=== PATIENT | female | born 1950 | race Caucasian/White ===

== ENCOUNTER 2016-10-13 09:42 | Emergency (ER) | payer MEDICARE ==
[2016-10-13 09:54] VITALS: TEMP 98.4; BMI 15.4
--- NOTE | 2016-10-13 10:20 | EDPRACDOC ---
- General Information Chief Complaint: Dyspnea/Resp distress Stated Complaint: SHOB/ COUGH Time Seen by Provider: 10/13/16 10:07 Mode Of Arrival: Car Home Medications: Home Medications Aspirin [Aspirin EC] 81 mg PO DAILY 04/26/14 Budesonide/Formoterol Fumarate [Symbicort 160-4.5 Mcg Inhaler] 2 puff INH BID Metoprolol Tartrate 75 mg PO DAILY 04/26/14 Topiramate [Topamax] 200 mg PO BID 04/26/14 Verapamil HCl 120 mg PO DAILY 04/26/14 Pantoprazole Sodium [Protonix] 40 mg PO DAILY 05/10/14 Albuterol/Ipratropium Neb [Duoneb] 3 ml NEB Q6H PRN 08/25/15 Butorphanol Tartrate 1 spray NS DAILY PRN 08/25/15 Ergocalciferol (Vitamin D2) [Drisdol] 50,000 unit PO FR 08/25/15 Atorvastatin Calcium [Lipitor] 10 mg PO DAILY 07/26/16 Clopidogrel Bisulfate [Plavix] 75 mg PO DAILY 07/26/16 Cefdinir 300 mg PO BID #20 capsule 10/13/16 Nebulizer [Erapid Nebulizer] 1 each MC .UNKNOWN 10/13/16 Prednisone [Deltasone, Orasone] 20 mg PO DAILY #20 tab 10/13/16 Allergies/Adverse Reactions: Allergies Allergy/AdvReac Type Severity Reaction Status Date / Time Penicillins Allergy Intermediate Hives* Verified 10/13/16 09:51 - History of Present Illness HPI: SHORTNESS OF BREATH STARTED APPROXIMATELY 1 WEEK AGO. ASSOCIATED WITH CHEST TIGHTNESS AND A PRODUCTIVE COUGH OF YELLOW PHLEGM. LOW-GRADE FEVER WELL. USES SPIRIVA AND ALBUTEROL NEBS AT HOME HAS BEEN USING NEBS EVERY 4-6 HOURS. PATIENT SAW PCP LAST WEEK OXYGEN LEVEL WAS 74% ON ROOM AIR AND WAS PLACED ON 2 L NASAL CANNULA CONTINUOUSLY 24 HOURS A DAY AND LEVAQUIN 750 P.O.. THESE WERE STARTED 3 DAYS AGO. DURING THIS TIME. PATIENT HAS NOT GOT ANY WORSE BUT SHE IS NOT GETTING BETTER SHE IS HERE NUMEROUS PRIOR TODAY BECAUSE SHE HAS NOT GOT ANY BETTER. Relevant History: Reports: COPD ED Past Medical History - History Reviewed Yes Nurses notes reviewed and agree except as marked - Patient Medical History Cardiac History: Reports: Hypertension Respiratory History: Reports: COPD, Pneumonia (walking pnue---3 months ago) GI/ History: Reports: Ulcer Psychological History: Denies: Depression, Substance Use Disorder Systemic History: Reports: Hyperthyroidism (treated with radiation). Denies: Cancer Surgical History: Reports: Other (C-spine and lumbosacral spine surgery) - Family Medical History Reports: Hypertension (mom), Cardiac Disorders (mom- brother). Denies: Diabetes , Cancer, Stroke - Social Medical History Smoking Status: Heavy tobacco smoker (5 or more cigarettes/day or daily pipe/ cigar) Social History: Denies: Substance Use Disorder ETOH: None Substance Abuse: None Lives With: Family Lives In: Home EDM Review of Systems - Review of Systems ROS Negative Except as Marked: Yes All systems reviewed and were negative except as marked - Physical Exam Constitutional: No apparent distress, Alert, Cachectic Oriented to: Time, Person, Place Last recorded Vital Signs: Last Vital Signs Temp 98.4 F 10/13/16 09:51 Pulse 117 10/13/16 09:51 Resp 22 10/13/16 09:51 BP 135/72 10/13/16 09:51 Pulse Ox 96 10/13/16 09:51 Oxygen Pulse Oxygen Saturation 96 O2 Device Nasal Cannula Oxygen Flow Rate 2 Fraction of Inspired Oxygen ( FIO2) - HEENT Head: Normal ( normocephalic) Eye Exam: Normal (PERRL, EOMI, Sclera white) Oropharynx: Normal (Pharynx:Moist without exudate,Gums-no swelling) Nose: No Symptoms Reported (septum midline) Neck: Normal (FROM, trachea at midline) - Respiratory/Cardiovascular Respiratory: Normal - CTA (BBS clear to auscultation without adventitious sounds ), Diminished, Rhonchi, Wheezes, Other (NO RESPIRATORY DISTRESS, SPEAKING IN CLEAR SENTENCES.). negative: Accessory Muscle Use, Tachypnea Cardiovascular: Normal (RRR without murmur, gallop or rub) - GI Auscultation: Normal (NABS) Palpation: Normal (Soft,No rebound or guarding, non distended) Tenderness: Non tender Sousa's Sign: Negative - Musculoskeletal Back: Normal (Non-Tender) Extremities: Normal (Normal tone, Pulses 2+ No cyanosis or edema, FROM) - Integumentary Skin: Normal, Warm, Dry Lymphatics: Normal (no adenopathy) - Neurologic Memory Impaired: Normal Motor Function: Normal (Normal tone, Pulses 2+ No cyanosis or edema, FROM) Cranial Nerve: Normal (CN II-X11 intact sensation, strength 5/5) Cerebellar: Normal Mood Description: Normal Thought: Coherent Perception: Normal ED SOB MDM - Results Result Diagrams: 10/13/16 10:00 10/13/16 10:00 - Diagnostic Imaging Chest Image interpreted by: Radiologist Diagnostic Imaging Comments: Patient Name: FABIOLA LYNN LOC: ED : 1950 AGE: 66 Order Date:10/13/16 Date of Service: Report # [id number] Ord Physician: Ursula Leon MD Exam # [id number] Emergency Physician: Ursula Leon MD Exam(s): [id number] RAD/DG CHEST 2V CLINICAL DATA: Shortness of breath, chest tightness, productive cough EXAM: CHEST 2 VIEW COMPARISON: 08/25/2015 FINDINGS: The lungs are hyperinflated likely secondary to COPD. There is no focal parenchymal opacity. There is no pleural effusion or pneumothorax. The heart and mediastinal contours are unremarkable. There is lower anterior cervical fusion IMPRESSION: No active cardiopulmonary disease. Electronically Signed By: Estephania Colbert On: 10/13/2016 10:44 Electronically Signed By: Estephania Colbert MD Electronically Signed Date/Time: [id number] Dictate Date/Time: 10/13/16 1042 Technologist: Celeste Gil Transcribed By: Chloe Transcribed Date/Time: 10/13/16 1044 - Additional Information Additional Information: PATIENT WITH ADVANCED COPD. ON MAINTENANCE INHALERS AND HAS COMBIVENT RESCUE INHALERS. HAS SUPPLEMENTAL OXYGEN HAS BEEN PLACED ON ANTIBIOTICS HAS BEEN GIVEN STEROIDS IM. WILL ASSESS FOR SEVERITY OF IN OF ILLNESS TODAY HOWEVER THE PATIENT HAS RECEIVED EXCELLENT OUTPATIENT THERAPY. SHE HAS NOT FAILED OUTPATIENT TREATMENT OF YET. - Departure Disposition: Home Condition: Stable Final Diagnosis: COPD with acute lower respiratory infection, Bronchopneumonia Instructions: COPD (Chronic Obstructive Pulmonary Disease) (ED), Bacterial Pneumonia (ED) Education/Counseling Given To: Patient, Family Member Education/Counseling Given Regarding: Diagnosis, Treatment, Prognosis Referrals: Ciara Maharaj PA [Primary Care Provider] - One Week Prescriptions: New Cefdinir 300 mg PO BID #20 capsule Prednisone [Deltasone, Orasone] 20 mg PO DAILY #20 tab No Action Topiramate [Topamax] 200 mg PO BID Verapamil HCl 120 mg PO DAILY Budesonide/Formoterol Fumarate [Symbicort 160-4.5 Mcg Inhaler] 2 puff INH BID Metoprolol Tartrate 75 mg PO DAILY Aspirin [Aspirin EC] 81 mg PO DAILY Pantoprazole Sodium [Protonix] 40 mg PO DAILY Albuterol/Ipratropium Neb [Duoneb] 3 ml NEB Q6H PRN PRN Reason: Shortness Of Breath Ergocalciferol (Vitamin D2) [Drisdol] 50,000 unit PO FR Butorphanol Tartrate 1 spray NS DAILY PRN PRN Reason: HEADACHES Clopidogrel Bisulfate [Plavix] 75 mg PO DAILY Atorvastatin Calcium [Lipitor] 10 mg PO DAILY Nebulizer [Erapid Nebulizer] 1 each MC .UNKNOWN
[2016-10-13] MEDS ORDERED: Albuterol/Ipratropium Neb 3 ML NEB NEB ONE (10:21)
[2016-10-13] MEDS ORDERED: METHYLPREDNISOLONE 125 MG/2 ML VIAL IV ONE (10:21)
[2016-10-13 10:40] LABS: AUTOMATED BASOPHIL 0.5 % (0-2); AUTOMATED EOSINOPHIL 0.5 % (0-5); AUTOMATED LYMPH 18.2 % (17-44); AUTOMATED MONOCYTE 9.4 % (3-10); AUTOMATED NEUTROPHIL 71.4 % (45-76)
--- NOTE | 2016-10-13 10:46 | DIRPT ---
CLINICAL DATA: Shortness of breath, chest tightness, productive cough EXAM: CHEST 2 VIEW COMPARISON: 08/25/2015 FINDINGS: The lungs are hyperinflated likely secondary to COPD. There is no focal parenchymal opacity. There is no pleural effusion or pneumothorax. The heart and mediastinal contours are unremarkable. There is lower anterior cervical fusion IMPRESSION: No active cardiopulmonary disease. Electronically Signed By: Estephania Colbert On: 10/13/2016 10:44
[2016-10-13 10:47] LABS: BLOOD UREA NITROGEN 21 MG/DL (7-17); CALC CORRECTED 10.1 MG/DL (8.4-10.2); CALCIUM 9.6 MG/DL (8.4-10.2); CALCULATED OSMOLALITY 274 MOs/Kg (270-290); CHLORIDE 102 mEq/L (98-107); CPK TOTAL WITH POSSIBLE MB 45 IU/L (30-134); GLUCOSE 104 MG/DL (70-99); SODIUM LEVEL 141 mEq/L (137-146); TOTAL PROTEIN 7.5 G/DL (6.3-8.2)
[2016-10-13 11:09] LABS: ALLEN'S TEST PASS; BEb 5.8 (+/- 2); TCO2 32.6 MMOL/L (23-27)
[2016-10-13 11:11] LABS: ABG Draw Site Left Radial
[2016-10-13 13:02] VITALS: BP 116/82; PULSE 93
== END 2016-10-13 13:01 | disposition home or self-care (01) ==
LOC: ED 09:42
DX: J44.0 Chronic obstructive pulmonary disease with (acute) lower respiratory infection (principal); J18.0 Bronchopneumonia, unspecified organism
CPT/HCPCS: 36415; 36600; 71020; 80053; 82550; 82803; 83605; 84484; 85025; 87040; 87075; 87205; 93005; 94640; 96374; 99284; J2930; J7620; 87070